=== PATIENT | male | born 1985 | race Caucasian/White ===

== ENCOUNTER 2018-05-20 20:43 | Emergency (ER) | payer SELFPAY ==
--- NOTE | 2018-05-20 21:22 | C.PDOC ---
History Of Present Illness 33 y/o male presents to the ED complaining of right lower back pain radiating down the right buttocks and right leg since yesterday. Pain is worse today. Patient denies any known trauma. He denies associated urinary complaints, weakness, saddle anesthesia, or incontinence of bowel/bladder. Patient admits to prior hx of similar pain, which he notes usually self-resolves. 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 Seen by Provider: 05/20/18 21:13 Chief Complaint (Nursing): Lower Extremity Problem/Injury History Per: Patient History/Exam Limitations: no limitations Onset/Duration Of Symptoms: Days (x 2) Current Symptoms Are (Timing): Still Present Past Medical History Reviewed: Historical Data, Nursing Documentation, Vital Signs Vital Signs: Last Vital Signs Temp 98.3 F 05/20/18 20:51 Pulse 76 05/20/18 20:51 Resp 20 05/20/18 20:51 BP 126/80 05/20/18 20:51 Pulse Ox 97 05/20/18 20:51 Family History: States: No Known Family Hx - Social History Hx Tobacco Use: No Hx Alcohol Use: Yes Hx Substance Use: No - Immunization History Hx Tetanus Toxoid Vaccination: No Hx Influenza Vaccination: No Hx Pneumococcal Vaccination: No Review Of Systems Except As Marked, All Systems Reviewed And Found Negative. Constitutional: Negative for: Fever, Chills Gastrointestinal: Negative for: Vomiting, Abdominal Pain Genitourinary: Negative for: Dysuria, Incontinence, Hematuria Musculoskeletal: Positive for: Back Pain, Leg Pain Skin: Negative for: Rash Neurological: Negative for: Weakness, Numbness Physical Exam - Physical Exam Appears: Non-toxic, No Acute Distress Skin: Warm, Dry, No Rash Head: Atraumatic, Normacephalic Eye(s): bilateral: Normal Inspection Oral Mucosa: Moist Neck: Normal ROM Chest: Symmetrical Respiratory: No Accessory Muscle Use, Other (Speaking in full sentences) Back: No Vertebral Tenderness, Paraspinal Tenderness (+ Paralumbar tenderness), Straight Leg Raising (+ on the right) Extremity: Bilateral: Normal Color And Temperature, Normal ROM (x 4) Pulses: Left Dorsalis Pedis: Normal, Right Dorsalis Pedis: Normal Neurological/Psych: Oriented x3, Normal Speech, Normal Motor, Normal Sensation Gait: Steady ED Course And Treatment O2 Sat by Pulse Oximetry: 97 (RA) Pulse Ox Interpretation: Normal Progress Note: Patient given Toradol IM and Valium PO. On reassessment patient reports improvement and is ambulatory with steady gait, stable for discharge home. Advised to take meds as written and follow up with PMD. Reassessment Condition: Improved Disposition Counseled Patient/Family Regarding: Diagnosis, Need For Followup - Disposition Referrals: Mateo H[facility] [Outside] Disposition: HOME/ ROUTINE Disposition Time: 22:31 Condition: STABLE Additional Instructions: Take medications as directed Return to ER if worse Prescriptions: Cyclobenzaprine [Cyclobenzaprine HCl] 10 mg PO BID #10 tab Ibuprofen [Motrin Tab] 800 mg PO QID #20 tab Instructions: Sciatica (DC) Forms: [employer] ([place]) - Clinical Impression Clinical Impression: Sciatica - PA / OBSTETRICAL ANESTHESIOLOGIST / Resident Statement MD/DO has reviewed & agrees with the documentation as recorded. - Scribe Statement The provider has reviewed the documentation as recorded by the Scribfatimah Crow All medical record entries made by the Scribe were at my direction and personally dictated by me. I have reviewed the chart and agree that the record accurately reflects my personal performance of the history, physical exam, medical decision making, and the department course for this patient. I have also personally directed, reviewed, and agree with the discharge instructions and disposition.
[2018-05-20] MEDS ORDERED: Tramadol 25 mg PO STA (22:21)
[2018-05-20 22:39] VITALS: BP 143/86; PULSE 60; RESP 18; TEMP 97.9
[2018-05-21 06:54] VITALS: O2SAT 97
== END 2018-05-20 22:40 | disposition home or self-care (01) ==
LOC: C.ER 20:43
DX: M54.31 Sciatica, right side (principal)
CPT/HCPCS: 96372; 99284; J1885